=== PATIENT | male | born 1995 | race Caucasian/White ===

== ENCOUNTER 2018-01-08 18:12 | Emergency (ER) | payer OTHER ==
--- NOTE | 2018-01-08 18:30 | PDOC ---
Rapid Medical Evaluation Time Seen by Provider: 01/08/18 18:30 Medical Evaluation: Allergies Allergy/AdvReac Type Severity Reaction Status Date / Time No Known Allergies Allergy Verified 01/08/18 18:30 01/08/18 18:30 I have performed a brief in-person evaluation of this patient. The patient presents with a chief complaint of: Nasal congestion w/ rhinorrhea, nasal itching and sneezing x 2 weeks, not better w/ vicks. No CHAUDHARI, facial pain or fever. No pmhx, non-smoker, denies illicit drug use Pertinent physical exam findings:appears very congested at triage I have ordered the following:nothing The patient will proceed to the ED for further evaluation Discharge Disposition - Diagnosis Allergic rhinitis Qualifiers: Allergic rhinitis trigger: unspecified Allergic rhinitis seasonality: unspecified seasonality Qualified Code(s): J30.9 - Allergic rhinitis, unspecified - Referrals - Patient Instructions - Post Discharge Activity
[2018-01-08 18:34] VITALS: BP 148/81; PULSE 86; TEMP 97.4; BMI 28.1
[2018-01-08] MEDS ORDERED: predniSONE 20 MG TABLET (UD) PO ONE (19:35)
[2018-01-08] MEDS ORDERED: ALBUTEROL SO4 2.5/IPRATROPIUM 0.5 INH SOL 3 ML VIAL.NEB. NEB ONE ×2 (19:35→19:37)
[2018-01-08] MEDS ORDERED: predniSONE 20 MG TABLET (UD) ONE (19:37)
--- NOTE | 2018-01-08 19:44 | PDOC ---
History of Present Illness - General Chief Complaint: Respiratory Stated Complaint: NASAL CONGESTION Time Seen by Provider: 01/08/18 18:30 History Source: Patient Exam Limitations: No Limitations - History of Present Illness Initial Comments: 01/08/18 19:35 Patient came to emergency department for evaluation of congestion, head fullness , and stuffy nose for on the past 2 weeks. States occurred in December but spontaneously resolved. States reoccurred approximately 2 weeks ago has progressively worsened. Has been using Vicks nasal vaporizer and Vicks VapoRub with minimal resolved. Has taken no medication, does not take any ALLERGIES medications. Denies fever, denies any earache or sore throat pain. No history of pollen ALLERGIES that he knows of. Is not a drinker, smoker, works outside in construction Timing/Duration: reports: getting worse Severity: reports: mild, moderate Associated Symptoms: reports: cough, nasal congestion, nasal drainage. denies: sore throat, wheezing Past History - Past Medical History Allergies/Adverse Reactions: Allergies Allergy/AdvReac Type Severity Reaction Status Date / Time No Known Allergies Allergy Verified 01/08/18 18:30 Home Medications: Ambulatory Orders Albuterol Sulfate Inhaler - [Ventolin HFA Inhaler -] 1 - 2 inh PO Q4H #1 inhaler 01/08/18 Cetirizine HCl [Zyrtec -] 10 mg PO DAILY #30 tablet 01/08/18 predniSONE [Deltasone -] 10 mg PO DAILY #30 tablet 01/08/18 Asthma: Yes COPD: No - Immunization History Immunization Up to Date: Yes - Suicide/Smoking/Psychosocial Hx Smoking Status: No Smoking History: Never smoked Number of Cigarettes Smoked Daily: 0 Hx Alcohol Use: No Drug/Substance Use Hx: No Substance Use Type: None Respiratory Specific PMHX - Complaint Specific PMHX Bronchitis: No Pneumonia: No Review of Systems - Review of Systems Able to Perform ROS?: Yes Is the patient limited Chinese proficient: Yes Constitutional: Yes: Symptoms Reported, See HPI. No: Fever, Loss of Appetite HEENTM: Yes: Symptoms Reported, See HPI, Nose Congestion Respiratory: Yes: Symptoms reported, See HPI, Cough, Shortness of Breath, Wheezing Cardiac (ROS): No: Symptoms Reported Integumentary: Yes: Symptoms Reported Neurological: Yes: Symptoms reported, See HPI All Other Systems: Reviewed and Negative *Physical Exam - Vital Signs Last Vital Signs Temp Pulse Resp BP Pulse Ox 97.4 F L 86 19 148/81 96 01/08/18 18:30 01/08/18 18:30 01/08/18 18:30 01/08/18 18:30 01/08/18 18:30 - Physical Exam General Appearance: Yes: Nourished, Appropriately Dressed, Apparent Distress, Mild Distress HEENT: positive: Normal ENT Inspection, TMs Normal (congested but landmarks easily visualized), Rhinorrhea (clear and stuffy, no purulent drainage noted), Sinus Tenderness (fullness) Neck: positive: Supple, Lymphadenopathy (R), Lymphadenopathy (L) Respiratory/Chest: positive: Normal Breath Sounds, Wheezing (faint end expiratory wheezing throughout). negative: Lungs Clear Gastrointestinal/Abdominal: positive: Soft, Rebound. negative: Tender Musculoskeletal: positive: Normal Inspection Extremity: positive: Normal Capillary Refill, Normal Inspection Integumentary: positive: Normal Color, Dry, Warm Neurologic: positive: cupola patcher II-XII NML intact, Fully Oriented, Alert, Normal Mood/ Affect, Normal Response, Motor Strength 5/5 Progress Note - Progress Note Progress Note: ALLERGIC rhinitis, much improved after DuoNeb. We'll continue albuterol inhalers for the next few days, add prednisone short course, and antihistamines daily *DC/Admit/Observation/Transfer Diagnosis at time of Disposition: Allergic rhinitis Qualifiers: Allergic rhinitis trigger: unspecified Allergic rhinitis seasonality: unspecified seasonality Qualified Code(s): J30.9 - Allergic rhinitis, unspecified - Discharge Dispostion Disposition: HOME Condition at time of disposition: Stable Decision to Admit order: No - Referrals - Patient Instructions Printed Discharge Instructions: DI for Allergic Rhinitis Additional Instructions: Rest, drink lots of fluids: Teas, water, soups Saltwater gargles. Consider humidifier in room at night Steamy showers/seem to face break up mucus Avoid contact with allergens, exposure to pollens, close windows on a windy day Lots of handwashing and good hygiene Continue [id number] medications for symptomatic relief- may use allergic eyedrops for itching I Continue antihistamines daily until pollen season is over; Zyrtec, Claritin, Remedios during the daytime and Benadryl at nighttime as will make sleepy Prednisone 40 mg daily for the next 4 days Albuterol inhalers 2 puffs 4 times a day for the next 3 days then as needed Tylenol or Motrin for fever and pain Followup with private physician in one to 2 days as needed Consider following up with an cattle brander/process design engineer for skin testing and possible allergy shots Return to emergency department for worsened symptoms, fevers, dehydration - Post Discharge Activity Forms/Work/School Notes: Back to Work
== END 2018-01-08 20:12 | disposition home or self-care (01) ==
LOC: JERFT 18:12
PROC: 3E0F7GC Introduction of Other Therapeutic Substance into Respiratory Tract, Via Natural or Artificial Opening (ICD-10-PCS; principal; 2018-01-08)
DX: J30.9 Allergic rhinitis, unspecified (principal)
CPT/HCPCS: 99281-25; J7620

== ENCOUNTER 2022-04-19 16:05 | Emergency (ER) | payer OTHER ==
[2022-04-19 16:28] VITALS: BP 137/71; PULSE 86; RESP 19; TEMP 98.2; BMI 29.0
== END 2022-04-19 17:42 | disposition home or self-care (01) ==
LOC: JERFT 16:05
DX: Z48.02 Encounter for removal of sutures (principal)
CPT/HCPCS: 99281-25

== ENCOUNTER 2023-09-09 10:03 | Emergency (ER) | payer OTHER ==
[2023-09-09 10:18] VITALS: BP 144/86; PULSE 89; RESP 20; TEMP 98.1; BMI 28.1
== END 2023-09-09 13:20 | disposition home or self-care (01) ==
LOC: JERFT 10:03
DX: M25.531 Pain in right wrist (principal); R22.31 Localized swelling, mass and lump, right upper limb; R20.0 Anesthesia of skin
CPT/HCPCS: 73110-TC-RT-FY; 73130-TC-RT-FY; 99283-25

== ENCOUNTER 2023-09-12 12:43 | Emergency (ER) | payer OTHER ==
[2023-09-12 12:50] VITALS: BP 149/66; PULSE 72; RESP 18; TEMP 98.1; BMI 28.1
== END 2023-09-12 15:42 | disposition home or self-care (01) ==
LOC: JERFT 12:43
DX: S69.91XD Unspecified injury of right wrist, hand and finger(s), subsequent encounter (principal); M79.641 Pain in right hand; W19.XXXD Unspecified fall, subsequent encounter
CPT/HCPCS: 73110-TC-RT-FY; 73130-TC-RT-FY; 99283-25